=== PATIENT | male | born 1985 | race Caucasian/White ===

== ENCOUNTER 2019-06-02 02:57 | Inpatient (IN) | payer SELFPAY ==
[~2019-06-02] VITALS: Ht 165.1 cm; Wt 76.8 kg
[2019-06-02] VITALS (20 sets, daily range): BP systolic 157–200; BP diastolic 81–115
[2019-06-02] MEDS ORDERED: IPRATROPIUM BROMIDE (0.02%) 0.5MG/2.5ML NEB HHN STA (03:15)
[2019-06-02] MEDS ORDERED: LABETALOL HCL 20MG/4ML CARPUJECT IV ONE (03:15)
[2019-06-02] MEDS ORDERED: NITROGLYCERIN OINT 1GM/INCH UDPKT TD ONE (03:15)
[2019-06-02] MEDS ORDERED: ALBUTEROL (0.083%) 2.5MG/3ML NEB HHN STA (03:15)
[2019-06-02] MEDS ORDERED: ONDANSETRON HCL 4MG/2ML INJ IV STA (03:15)
[2019-06-02] MEDS ORDERED: LABETALOL 5MG/ML SYR 20 MG/4 ML SYRINGE IV NR (03:30)
[2019-06-02 03:37] LABS: BASOPHILS % 0.8 % (0.0-2.0); EOSINOPHILS % 1.1 % (0.0-5.0); HEMATOCRIT. 27.6 % (42.0-52.0); HEMOGLOBIN. 9.3 g/dL (14.0-18.0); LYMPHOCYTES % 8.1 % (20.0-50.0); MEAN CORPUSCULAR HEMOGLOBIN 30.3 pg (28.0-32.0); MEAN CORPUSCULAR VOLUME 89.8 fL (80.0-94.0); MEAN PLATELET VOLUME 7.2 fl (7.4-10.4); MONOCYTES % 4.4 % (2.0-8.0); NEUTROPHILS % 85.6 % (40.0-76.0); PLATELET 263 x1000/uL (130-400); RED BLOOD CELL COUNT 3.07 mill/uL (4.7-6.1); RED CELL DISTRIBUTION WIDTH 16.6 % (11.6-14.6)
[2019-06-02 03:48] LABS: CHLORIDE 103 mEq/L (98-107)
[2019-06-02] MEDS ORDERED: NICARDIPINE 100 MG in SODIUM CHLORIDE 0.9% 60 ML IV ONE (04:30)
[2019-06-02] MEDS ORDERED: NICARDIPINE 40MG/200ML PREMIX 200 ML IV PRN (04:30)
[2019-06-02] MEDS ORDERED: SEVELAMER CARBONATE 800 MG TABLET PO SCH (08:20)
[2019-06-02] MEDS ORDERED: IPRATROPIUM/ALBUTEROL 0.5-3(2.5)MG/3ML NEB NEB PRN (08:30)
[2019-06-02] MEDS ORDERED: DIPHENHYDRAMINE 50MG/ML VIAL IV PRN (08:30)
[2019-06-02] MEDS ORDERED: GUAIFENESIN 200MG/10ML SUGAR FREE UDC PO PRN (08:30)
[2019-06-02] MEDS ORDERED: LORAZEPAM 0.5MG TABLET PO PRN (08:30)
[2019-06-02] MEDS ORDERED: CLONIDINE 0.1MG TABLET PO PRN (08:30)
[2019-06-02] MEDS ORDERED: ACETAMINOPHEN 325MG TABLET PO PRN (08:30)
[2019-06-02] MEDS ORDERED: MAGNESIUM/ALUMINUM HYDROXIDE/SIMETHICONE 30ML UDC PO PRN (08:30)
[2019-06-02] MEDS ORDERED: ONDANSETRON HCL 4MG/2ML INJ IV PRN (08:30)
[2019-06-02] MEDS ORDERED: NITROGLYCERIN 0.4MG TABLET SL SL PRN (08:30)
[2019-06-02] MEDS ORDERED: DOCUSATE SODIUM 100MG CAPSULE PO PRN (08:30)
[2019-06-02] MEDS ORDERED: TRAMADOL 50MG TABLET PO PRN (08:30)
[2019-06-02] MEDS ORDERED: ASPIRIN 325MG EC TABLET PO SCH (09:00)
[2019-06-02] MEDS ORDERED: ENOXAPARIN 30MG/0.3ML SYR SUBCUT SCH (09:00)
[2019-06-02] MEDS ORDERED: FAMOTIDINE 20MG TABLET PO SCH (09:00)
[2019-06-02] MEDS ORDERED: FOLIC ACID/VITAMIN B COMP W-C TABLET PO SCH (09:00)
[2019-06-02] MEDS ORDERED: NIFE90TA60 PO (11:53)
[2019-06-02] MEDS ORDERED: CALC667T6 MT (11:53)
[2019-06-02] MEDS ORDERED: CLON0.2T PO (11:53)
[2019-06-02] MEDS ORDERED: MINO2.5T2 MT (11:53)
[2019-06-02 13:29] LABS: OPIATES URINE SCREEN NEGATIVE (NEGATIVE); PHENCYCLIDINE URINE SCREEN NEGATIVE (NEGATIVE)
[2019-06-02 13:31] LABS: *AMPHETAMINES SCREEN URINE NEGATIVE (NEGATIVE); *BARBITURATES SCREEN URINE NEGATIVE (NEGATIVE); *BENZODIAZEPINES SCREEN URINE NEGATIVE (NEGATIVE); *COCAINE SCREEN URINE NEGATIVE (NEGATIVE); CANNABINOID URINE SCREEN NEGATIVE (NEGATIVE)
[2019-06-02 13:33] LABS: METHADONE URINE SCREEN NEGATIVE (NEGATIVE)
[2019-06-02] MEDS ORDERED: CLONIDINE 0.3MG TABLET PO SCH (14:00)
[2019-06-02] MEDS ORDERED: MINOXIDIL 10MG TABLET PO SCH (21:00)
[2019-06-02] MEDS ORDERED: ZOLPIDEM TARTRATE 5MG TABLET PO PRN (21:00)
== END 2019-06-02 14:09 | disposition left against medical advice (07) | DRG 194 ==
LOC: ER 02:57 → CVICU 06:19 → ENRESERV 06:19 → EDBEDREQ 06:21 → EDBEDREQTM 06:21
PROVIDERS: ADMIT Internal Medicine; ATTEND Internal Medicine
PROC: 5A09357 Assistance with Respiratory Ventilation, Less than 24 Consecutive Hours, Continuous Positive Airway Pressure (ICD-10-PCS; principal; 2019-06-02)
PROC: 5A1D70Z Performance of Urinary Filtration, Intermittent, Less than 6 Hours Per Day (ICD-10-PCS; 2019-06-02)
DX: I13.2 Hypertensive heart and chronic kidney disease with heart failure and with stage 5 chronic kidney disease, or end stage renal disease (principal); J96.01 Acute respiratory failure with hypoxia; I50.31 Acute diastolic (congestive) heart failure; N18.6 End stage renal disease; D63.8 Anemia in other chronic diseases classified elsewhere; N26.9 Renal sclerosis, unspecified; Z79.899 Other long term (current) drug therapy; Z82.49 Family history of ischemic heart disease and other diseases of the circulatory system; Z86.14 Personal history of Methicillin resistant Staphylococcus aureus infection; Z91.15 Patient's noncompliance with renal dialysis; Z91.19 Patient's noncompliance with other medical treatment and regimen; Z99.2 Dependence on renal dialysis
CPT/HCPCS: 36415; 71045; 80053; 80061; 80305; 80307; 83036; 83835; 83880; 84484; 85025; 93005; 93970; 99291; J1650; J2405; J3490; J7050